=== PATIENT | female | born 1975 | race Native Hawaiian/Other Pacific Islander ===

== ENCOUNTER 2020-06-24 08:22 | Emergency (ER) | payer SELFPAY ==
[~2020-06-24] VITALS: Ht 170 cm; Wt 123.3 kg
[2020-06-24] MEDS ORDERED: LACTATED RINGERS 1,000 ML IV STA (08:53)
[2020-06-24 09:07] LABS: BASOPHILS % (AUTO) 0 % (0-10); EOSINOPHILS # (AUTO) 0.3 10^3/uL (0.0-0.3); EOSINOPHILS % (AUTO) 3 % (0-10); HEMATOCRIT 31 % (35-52); HEMOGLOBIN 9.5 G/DL (11.5-16.0); LYMPHOCYTES # (AUTO) 1.2 X 10^3 (1.0-4.0); LYMPHOCYTES % (AUTO) 12 % (12-44); MEAN CORPUSCULAR HGB CONC 30 G/DL (32-36); MEAN CORPUSCULAR VOLUME 80 FL (80-99); MEAN PLATELET VOLUME 10.2 FL (7.4-10.4); MONOCYTES # (AUTO) 0.5 X 10^3 (0.0-1.0); MONOCYTES % (AUTO) 5 % (0-12); NEUTROPHILS # (AUTO) 7.6 X 10^3 (1.8-7.8); NEUTROPHILS % (AUTO) 79 % (42-75); PLATELET COUNT 313 10^3/uL (130-400); WHITE BLOOD COUNT 9.6 10^3/uL (4.3-11.0)
[2020-06-24 09:08] LABS: CLARITY,URINE CLEAR; COLOR,URINE YELLOW; GLUCOSE, URINE (UA) NEGATIVE (NEGATIVE); KETONES,URINE NEGATIVE (NEGATIVE); LEUKOCYTE ESTERASE ,URINE TRACE (NEGATIVE); NITRITE,URINE NEGATIVE (NEGATIVE); PH,URINE 5.5 (5-9); PROTEIN,URINE 1+ (NEGATIVE)
[2020-06-24 09:15] LABS: MEAN CORPUSCULAR HEMOGLOBIN 24 PG (25-34)
[2020-06-24 09:20] LABS: BACTERIA,URINE MODERATE /HPF; SQUAMOUS EPITHELIAL CELL,UR >50 /HPF
[2020-06-24 09:21] LABS: BILIRUBIN,URINE 1+ (NEGATIVE)
[2020-06-24 09:23] LABS: ALBUMIN 4.1 GM/DL (3.2-4.5); CHLORIDE 102 MMOL/L (98-107); POTASSIUM 3.2 MMOL/L (3.6-5.0); SODIUM 138 MMOL/L (135-145)
[2020-06-24 09:24] LABS: CALCIUM 8.9 MG/DL (8.5-10.1)
[2020-06-24 09:25] LABS: GLUCOSE 141 MG/DL (70-105)
[2020-06-24 09:26] LABS: TOTAL PROTEIN 7.8 GM/DL (6.4-8.2)
[2020-06-24 09:27] LABS: BILIRUBIN,TOTAL 0.5 MG/DL (0.1-1.0); CARBON DIOXIDE 25 MMOL/L (21-32)
[2020-06-24 09:29] LABS: ALKALINE PHOSPHATASE 55 U/L (40-136); CREATININE SERUM 0.74 MG/DL (0.60-1.30); GFR ESTIMATED > 60
[2020-06-24 09:30] LABS: BUN/CREATININE RATIO 16
[2020-06-24 09:32] LABS: ALANINE AMINOTRANSFERASE 36 U/L (0-55); LIPASE 20 U/L (8-78)
[2020-06-24] MEDS ORDERED: NS 100 ML (IVPB) BAG IV ONE (09:45)
[2020-06-24] MEDS ORDERED: IOHEXOL 350 MG/ML 100 ML (OMNIPAQUE 350) VIAL IV ONE (09:45)
[2020-06-24] MEDS ORDERED: HOLD METFORMIN - RECEIVED CONTRAST 20 ML VIAL IV SCH (09:45)
[2020-06-24 09:52] LABS: TSH (THYROID ANALYZER) 4.36 UIU/ML (0.35-4.94)
--- NOTE | 2020-06-24 09:54 | ED Abdominal Pain ---
General Chief Complaint: Abdominal/GI Problems Stated Complaint: STOMACH/BACK PAIN Nursing Triage Note: ARRIVED VIA AMB TO ROOM 07 WITHOUT DIFFICULTY. COMPLAINS OF ABD PAIN ET YELLOW DIARRHEA X1 WEEK. RECENTLY OUT OF SHELTER. Sepsis Screen: No Definite Risk Source of Information: Patient Exam Limitations: No Limitations History of Present Illness Date Seen by Provider: Jun 24, 2020 Time Seen by Provider: 08:50 Initial Comments Here with complaint of diffuse abdominal pain but mostly above the bellybutton that is associated with diarrhea that is yellow and mucousy. States that she has had this for the last week. Denies fever or chills. Denies blood in her stool. Denies dysuria. Did get out of [facility] earlier this month and had CovidTesting at that time. That was negative. She currently [facility] the [facility]. Reports that she had ultrasound while in [facility] that showed multiple large cysts to the uterus and ovaries. She is not sure what that is all about. Timing/Duration: 1 Week Severity/Quality: Aching, Cramping Location: RUQ, LUQ Radiation: RLQ, LLQ Activities at Onset: None Modifying Factors: Improves With Defecating; Worsens With Eating Associated Symptoms: No Back Pain, No Chest Pain, No Fever/Chills, No Fatigue, No Nausea/Vomiting, No Shortness of Air; Swelling/Mass in Abdomen; No Weakness Allergies and Home Medications Allergies Coded Allergies: Penicillins (Verified Allergy, Unknown, 06/24/20) codeine (Verified Allergy, Unknown, 06/24/20) Patient Home Medication List Home Medication List Reviewed: Yes Review of Systems Review of Systems Constitutional: see HPI; No chills, No fever EENTM: No Symptoms Reported Respiratory: No Symptoms Reported Cardiovascular: No Symptoms Reported Gastrointestinal: See HPI Genitourinary: No Symptoms Reported Musculoskeletal: no symptoms reported All Other Systems Reviewed Negative Unless Noted: Yes Past Lanodfk-Rhccog-Lixdia Hx Past Med/Social Hx: Reviewed Nursing Past Med/Soc Hx Patient Social History Alcohol Use: Denies Use Recreational Drug Use: No Smoking Status: Current Everyday Smoker Recent Foreign Travel: No Contact w/Someone Who Travel: No Recent Infectious Disease Expo: No Recent Hopitalizations: No Past Medical History Surgeries: Yes (HAND) Section, Gallbladder Respiratory: No Cardiac: No Neurological: No Genitourinary: No Gastrointestinal: No Musculoskeletal: No Diabetes, Non-Insulin dep Cancer: No Family Medical History Reviewed Nursing Family Hx Physical Exam Vital Signs Vital Signs - First Documented 06/24/20 08:35 Temp 36.3 Pulse 84 Resp 16 B/P (MAP) 137/94 (108) Pulse Ox 99 O2 Delivery Room Air Capillary Refill : Less Than 3 Seconds Height/Weight/BMI Height: '" Weight: lbs. oz. kg; 42.00 BMI Method: General Appearance: WD/WN, no apparent distress HEENT: PERRL/EOMI, pharynx normal Neck: full range of motion, supple Respiratory: lungs clear, normal breath sounds Cardiovascular: regular rate, rhythm, no murmur Gastrointestinal: soft; No guarding, No rebound; tenderness (upper abdomen) Extremities: non-tender, normal inspection Back: normal inspection, no CVA tenderness, no vertebral tenderness Neurologic/Psychiatric: alert, oriented x 3 Skin: normal color, warm/dry Progress/Results/Core Measures Results/Orders Lab Results Laboratory Tests Test 06/24/20 08:35 06/24/20 08:55 Range/Units Urine Color YELLOW Urine Clarity CLEAR Urine pH 5.5 5-9 Urine Specific [place] >=1.030 1.016-1.022 Urine Protein 1+ H NEGATIVE Urine Glucose (UA) NEGATIVE NEGATIVE Urine Ketones NEGATIVE NEGATIVE Urine Nitrite NEGATIVE NEGATIVE Urine Bilirubin 1+ H NEGATIVE Urine Urobilinogen 1.0 < = 1.0 MG/DL Urine Leukocyte Esterase TRACE H NEGATIVE Urine RBC (Auto) NEGATIVE NEGATIVE Urine RBC NONE /HPF Urine WBC 5-10 H /HPF Urine Squamous Epithelial Cells >50 H /HPF Urine Crystals NONE /LPF Urine Bacteria MODERATE H /HPF Urine Casts NONE /LPF Urine Mucus NEGATIVE /LPF Urine Culture Indicated YES Urine Test NEGATIVE NEGATIVE White Blood Count 9.6 4.3-11.0 10^3/uL Red Blood Count 3.88 L 4.35-5.85 10^6/uL Hemoglobin 9.5 L 11.5-16.0 G/DL Hematocrit 31 L 35-52 % Mean Corpuscular Volume 80 80-99 FL Mean Corpuscular Hemoglobin 24 L 25-34 PG Mean Corpuscular Hemoglobin Concent 30 L 32-36 G/DL Red Cell Distribution Width 17.1 H 10.0-14.5 % Platelet Count 313 130-400 10^3/uL Mean Platelet Volume 10.2 7.4-10.4 FL Neutrophils (%) (Auto) 79 H 42-75 % Lymphocytes (%) (Auto) 12 12-44 % Monocytes (%) (Auto) 5 0-12 % Eosinophils (%) (Auto) 3 0-10 % Basophils (%) (Auto) 0 0-10 % Neutrophils # (Auto) 7.6 1.8-7.8 X 10^3 Lymphocytes # (Auto) 1.2 1.0-4.0 X 10^3 Monocytes # (Auto) 0.5 0.0-1.0 X 10^3 Eosinophils # (Auto) 0.3 0.0-0.3 10^3/uL Basophils # (Auto) 0.0 0.0-0.1 10^3/uL Sodium Level 138 135-145 MMOL/L Potassium Level 3.2 L 3.6-5.0 MMOL/L Chloride Level 102 98-107 MMOL/L Carbon Dioxide Level 25 21-32 MMOL/L Anion Gap 11 5-14 MMOL/L Blood Urea Nitrogen 12 7-18 MG/DL Creatinine 0.74 0.60-1.30 MG/DL Estimat Glomerular Filtration Rate > 60 BUN/Creatinine Ratio 16 Glucose Level 141 H 70-105 MG/DL Calcium Level 8.9 8.5-10.1 MG/DL Corrected Calcium 8.8 8.5-10.1 MG/DL Total Bilirubin 0.5 0.1-1.0 MG/DL Aspartate Amino Transf (AST/SGOT) 47 H 5-34 U/L Alanine Aminotransferase (ALT/SGPT) 36 0-55 U/L Alkaline Phosphatase 55 40-136 U/L C-Reactive Protein High Sensitivity 1.87 H 0.00-0.50 MG/DL Total Protein 7.8 6.4-8.2 GM/DL Albumin 4.1 3.2-4.5 GM/DL Lipase 20 8-78 U/L TSH Ramona Testing 4.36 0.35-4.94 UIU/ML My Orders Orders - AMERICA MORTON MD Lactated Ringers (Lr 1000 Ml Iv Solution (06/24/20 08:53) Ed Iv/Invasive Line Start (06/24/20 08:53) Cbc With Automated Diff (06/24/20 08:53) Comprehensive Metabolic Panel (06/24/20 08:53) Hs C Reactive Protein (06/24/20 08:53) Lipase (06/24/20 08:53) Thyroid Analyzer (06/24/20 08:53) Ua Culture If Indicated (06/24/20 08:53) Hcg,Qualitative Urine (06/24/20 08:53) Urine Culture (06/24/20 08:35) Ct Abdomen/Pelvis W (06/24/20 09:41) Iohexol Injection (Omnipaque 350 Mg/Ml 1 (06/24/20 09:45) Received Contrast (Hold Metformin- Contr (06/24/20 09:45) Ns (Ivpb) (Sodium Chloride 0.9% Ivpb Bag (06/24/20 09:45) Medications Given in ED Current Medications Medications Dose Ordered Sig/Vinnie Route Start Time Stop Time Status Last Admin Dose Admin Iohexol 100 ml ONCE ONCE IV 06/24/20 09:45 06/24/20 09:57 DC 06/24/20 10:17 100 ML Sodium Chloride 100 ml ONCE ONCE IV 06/24/20 09:45 06/24/20 09:57 DC 06/24/20 10:17 80 ML Vital Signs/I&O 06/24/20 08:35 Temp 36.3 Pulse 84 Resp 16 B/P (MAP) 137/94 (108) Pulse Ox 99 O2 Delivery Room Air Blood Pressure Mean: 108 Progress Progress Note : Progress Note Seen and evaluated. IV, labs, UA, LR 1 L bolus ordered. Anticipate CT abdomen pelvis. 0940: CT abdomen pelvis with contrast ordered. Monitor patient. 1159: Overall improved. Tolerated ice chips without difficulty. Results reviewed and discussed with the patient. She does need follow-up for the uterine enlargement and possible fibroids. Patient does have heavy menstrual periods. She has follow-up with a women's specialist in progress. I did discuss with her about follow-up with surgeon for possible endoscopy and she appreciated that recommendation. Discharged home with return precautions. Patient verbalize understanding instructions and agreement with plan. Diagnostic Imaging Diagonstic Imaging: CT Plain Films/CT/US/NM/MRI: abdomen, pelvis Comments [facility] [place], [place] NAME: JOSE ANTONIO [facility] REC#: [id number] PT STATUS: REG ER : 1975 PHYSICIAN: AMERICA MORTON MD ADMIT DATE: 06/24/20/ER Draft Date of Exam:06/24/20 CT ABDOMEN/PELVIS W CLINICAL INDICATION: Patient with diarrhea for 1 week as well as mid abdominal pain and nausea. EXAM: Axial CT scan of the abdomen and pelvis was performed without and with 100 cc of Omnipaque 350 IV contrast. Coronal and sagittal reformatted images were created. Portal venous and delayed phases were obtained. COMPARISON: None. FINDINGS: There is mild atelectasis involving both lung bases. There are small spurs involving both hips. There is facet arthropathy involving the lower lumbar spine. There are degenerative spurs involving the lumbar spine. There is diffuse low attenuation seen throughout the liver. The liver is enlarged measuring 21.3 cm in craniocaudal dimension. There is no liver mass. The spleen, pancreas, and adrenal glands are unremarkable. The gallbladder is surgically resected. There is pneumobilia seen which may be related to cholecystectomy changes. Both kidneys have a lobulated configuration which may be related to lobulations. Otherwise, both kidneys are unremarkable with no hydronephrosis, mass, or stones. The bladder is partially fluid-filled and otherwise unremarkable as visualized. The uterus is enlarged measuring grossly 8.6 cm x 10.2 cm x 4.2 cm (AP x Trans x CC). There is also a slightly lobulated contour, especially seen superiorly, which may represent a uterine fibroid. There is fluid in the uterus. The bilateral adnexal regions are unremarkable. There is no intra-abdominal free air or free fluid. There is a small amount of stool scattered throughout the colon. There are no significant air-fluid levels. There is no intestinal obstruction or abnormal bowel wall thickening. There is no lymphadenopathy. The visualized portion of the appendix is unremarkable. The extraabdominal and extrapelvic soft tissue structures are unremarkable. The abdominal aorta and common iliac arteries are unremarkable. IMPRESSION: 1. There is bowel wall thickening involving the first portion of the duodenum. Duodenitis may be considered versus contraction. Otherwise, there is no gross CT evidence of an acute abdominal or pelvic process. 2. There is significant enlargement of the uterus with a lobulated contour. This may be related to multiple uterine fibroids. A nonemergent ultrasound of the pelvis would better evaluate. 3. There is no intestinal obstruction or significant intestinal abnormality, as visualized. 4. There is hepatomegaly and diffuse fatty infiltration of the liver. Dictated on workstation # [id number] Dict: 06/24/20 1059 Trans: 06/24/20 1113 [id number] Interpreted by: ZOEY NICHOLS MD Electronically signed by: Departure Impression Primary Impression: Abdominal pain Qualified Codes: R10.10 - Upper abdominal pain, unspecified Additional Impression: Diarrhea Qualified Codes: R19.7 - Diarrhea, unspecified Disposition: 01 HOME, SELF-CARE Condition: Improved Departure-Patient Inst. Decision time for Depature: 12:00 Referrals: NIKKI PEÑA DO Patient Instructions: Severe Abdominal Pain, Adult (DC), Diarrhea and Travelers' Diarrhea, Adult (DC) Add. Discharge Instructions: All discharge instructions reviewed with patient and/or family. Voiced understanding. You should follow clear a light diet for the next several days and then advance as tolerated. You may initiate [id number] probiotic per package directions. Continue follow-up with the gas line installer supervisor related to the uterine fibroids. You may also follow-up with the surgeon listed (Dr. Peña) or of your choosing for recheck and further evaluation related to the abdominal pain and diarrhea as you may need upper or lower endoscopy (scope). Return for worse pain, fever, vomiting, weakness, blood in your vomit or stool, breathing problems or other concerns as needed. Copy Copies To 1: CECY MELENDREZ DO Copies To 2: NIKKI PEÑA DO AMERICA MORTON MD Jun 24, 2020 09:54
--- NOTE | 2020-06-24 10:33 | NUR ---
RESING IN BED ET DENIES NEEDS AT THIS TIME.
--- NOTE | 2020-06-24 11:10 | NUR ---
IN ROOM AT THIS TIME.
--- NOTE | 2020-06-24 11:13 | Diagnostic Imaging Report ---
CLINICAL INDICATION: Patient with diarrhea for 1 week as well as mid abdominal pain and nausea. EXAM: Axial CT scan of the abdomen and pelvis was performed without and with 100 cc of Omnipaque 350 IV contrast. Coronal and sagittal reformatted images were created. Portal venous and delayed phases were obtained. COMPARISON: None. FINDINGS: There is mild atelectasis involving both lung bases. There are small spurs involving both hips. There is facet arthropathy involving the lower lumbar spine. There are degenerative spurs involving the lumbar spine. There is diffuse low attenuation seen throughout the liver. The liver is enlarged measuring 21.3 cm in craniocaudal dimension. There is no liver mass. The spleen, pancreas, and adrenal glands are unremarkable. The gallbladder is surgically resected. There is pneumobilia seen which may be related to cholecystectomy changes. Both kidneys have a lobulated configuration which may be related to lobulations. Otherwise, both kidneys are unremarkable with no hydronephrosis, mass, or stones. The bladder is partially fluid-filled and otherwise unremarkable as visualized. The uterus is enlarged measuring grossly 8.6 cm x 10.2 cm x 4.2 cm (AP x Trans x CC). There is also a slightly lobulated contour, especially seen superiorly, which may represent a uterine fibroid. There is fluid in the uterus. The bilateral adnexal regions are unremarkable. There is no intra-abdominal free air or free fluid. There is a small amount of stool scattered throughout the colon. There are no significant air-fluid levels. There is no intestinal obstruction or abnormal bowel wall thickening. There is no lymphadenopathy. The visualized portion of the appendix is unremarkable. The extraabdominal and extrapelvic soft tissue structures are unremarkable. The abdominal aorta and common iliac arteries are unremarkable. IMPRESSION: 1. There is bowel wall thickening involving the first portion of the duodenum. Duodenitis may be considered versus contraction. Otherwise, there is no gross CT evidence of an acute abdominal or pelvic process. 2. There is significant enlargement of the uterus with a lobulated contour. This may be related to multiple uterine fibroids. A nonemergent ultrasound of the pelvis would better evaluate. 3. There is no intestinal obstruction or significant intestinal abnormality, as visualized. 4. There is hepatomegaly and diffuse fatty infiltration of the liver. Dictated by: Dictated on workstation # [id number]
[2020-06-24 12:06] VITALS: BP 130/85
== END 2020-06-24 12:06 | disposition home or self-care (01) ==
LOC: ER 08:26
DX: R10.84 Generalized abdominal pain (principal); R19.7 Diarrhea, unspecified; F17.200 Nicotine dependence, unspecified, uncomplicated; Z88.0 Allergy status to penicillin; Z88.5 Allergy status to narcotic agent; Z20.828 Contact with and (suspected) exposure to other viral communicable diseases
CPT/HCPCS: 36415; 74177; 80053; 81000; 83690; 84443; 84703; 85025; 86141; 87088

== ENCOUNTER 2020-08-08 05:33 | Outpatient (RCR) | payer OTHER ==
[~2020-08-08] VITALS: Ht 170.2 cm; Wt 121.4 kg
[~2020-08-08 05:33] MED LIST: ASPI-999 PO; ATOR20TA66 PO; BREX3TAB PO; CHLO25TA22 PO; DOCU100T2 PO; FERR325T5 PO; GLIP5TAB13 PO; LEVO137T2 PO; METF-399 PO; NAPR-915 PO; NORE-18 PO; ONDA8TAB15 PO; PRAZ2CAP2 PO; RT-ALBUINH IH; TRAZ-227 PO; VENL150T PO
== END 2020-08-08 12:00 | disposition home or self-care (01) ==
LOC: PREOP 05:33
PROVIDERS: ATTEND Obstetrics & Gynecology
DX: Z01.812 Encounter for preprocedural laboratory examination (principal); Z20.828 Contact with and (suspected) exposure to other viral communicable diseases
CPT/HCPCS: 87635

== ENCOUNTER 2020-09-19 05:35 | Outpatient (RCR) | payer OTHER ==
[~2020-09-19] VITALS: Ht 170.2 cm; Wt 121.4 kg
[~2020-09-19 05:35] MED LIST changes: +VENL225T PO
== END 2020-09-19 11:39 | disposition home or self-care (01) ==
LOC: PREOP 05:35
PROVIDERS: ATTEND Obstetrics & Gynecology
DX: Z01.812 Encounter for preprocedural laboratory examination (principal); N93.8 Other specified abnormal uterine and vaginal bleeding; Z20.828 Contact with and (suspected) exposure to other viral communicable diseases
CPT/HCPCS: 87635

== ENCOUNTER 2020-09-22 06:07 | Day surgery (SDC) | payer OTHER ==
[2020-09-22] VITALS (9 sets, daily range): BP systolic 102–133; BP diastolic 56–93
[~2020-09-22] VITALS: Ht 170.2 cm; Wt 121.4 kg
[2020-09-22] MEDS ORDERED: LACTATED RINGERS 1,000 ML IV PRN ×2 (06:15)
[2020-09-22] MEDS ORDERED: BUPIVACAINE 0.25% 30 ML (SENSORCAINE) VIAL ONE (07:11)
[2020-09-22] MEDS ORDERED: MIDAZOLAM 2 MG/2 ML (VERSED) VIAL ONE ×2 (07:11→07:29)
[2020-09-22] MEDS ORDERED: MIDAZOLAM 2 MG/2 ML (VERSED) VIAL IV ONE (07:15)
--- NOTE | 2020-09-22 07:20 | Discharge Inst-Women's Service ---
Discharge Inst-Women's Serv Depart Medication/Instructions New, Converted or Re-Newed RX: RX on Chart Problems Reviewed?: Yes Consults/Follow Up Additional Follow Up: Yes Orders/Referrals Dr. Garcia in 2 weeks Activity Activity: Activity as Tolerated Driving Instructions: No Driving for 1 Week NO SMOKING: NO SMOKING Nothing Inside Vagina: No Douching, No Corrigan, No Tampons Diet Discharge Diet: No Restrictions Symptoms to Report to : Bleeding Excessive, Pain Increased, Fever Over 101 Degrees F, Vaginal Bleeding Increase, Questions/Concerns For Any Problems or Questions: Contact Your Physician TASHIA GARCIA DO Sep 22, 2020 07:20
[2020-09-22 07:24] LABS: BASOPHILS # (AUTO) 0.1 10^3/uL (0.0-0.1); BASOPHILS % (AUTO) 1 % (0-10); EOSINOPHILS # (AUTO) 0.3 10^3/uL (0.0-0.3); EOSINOPHILS % (AUTO) 3 % (0-10); HEMATOCRIT 26 % (35-52); HEMOGLOBIN 7.3 g/dL (11.5-16.0); LYMPHOCYTES # (AUTO) 1.3 10^3/uL (1.0-4.0); LYMPHOCYTES % (AUTO) 12 % (12-44); MEAN CORPUSCULAR HEMOGLOBIN 23 pg (25-34); MEAN CORPUSCULAR HGB CONC 28 g/dL (32-36); MEAN CORPUSCULAR VOLUME 81 fL (80-99); MEAN PLATELET VOLUME 10.6 fL (9.0-12.2); MONOCYTES # (AUTO) 0.7 10^3/uL (0.0-1.0); MONOCYTES % (AUTO) 7 % (0-12); NEUTROPHILS # (AUTO) 8.1 10^3/uL (1.8-7.8); NEUTROPHILS % (AUTO) 77 % (42-75); PLATELET COUNT 382 10^3/uL (130-400); WHITE BLOOD COUNT 10.4 10^3/uL (4.3-11.0)
[2020-09-22] MEDS ORDERED: ONDANSETRON 4 MG/2 ML (SDV) Z0FRAN ONE (07:28)
[2020-09-22] MEDS ORDERED: proPOfol 200 MG/20 ML (DIPRIVAN) VIAL IV ONE (07:28)
[2020-09-22] MEDS ORDERED: SEVOFLURANE (ULTANE) 15 ML INHAL SOLN ONE (07:28)
[2020-09-22] MEDS ORDERED: LIDOCAINE PF 2% 5 ML (XYLOCAINE) VIAL ONE (07:28)
[2020-09-22] MEDS ORDERED: fentaNYL INJECTION 100 MCG/2 ML AMP ONE (07:29)
[2020-09-22] MEDS ORDERED: D5 LR IV SOLUTION 1,000 ML IV SCH (07:30)
[2020-09-22] MEDS ORDERED: HYDROcodone/APAP 5 MG/325 MG (LORTAB) TAB PO PRN (07:30)
[2020-09-22] MEDS ORDERED: ONDANSETRON 4 MG/2 ML (SDV) Z0FRAN IVP PRN ×2 (07:30→08:45)
[2020-09-22] MEDS ORDERED: KETOROLAC 30 MG/ML VIAL IVP ONE (07:30)
[2020-09-22] MEDS ORDERED: KETOROLAC 30 MG/ML VIAL ONE (08:02)
--- NOTE | 2020-09-22 08:35 | Anesthesia-General Post-Op ---
General Patient Condition Mental Status/LOC: Same as Preop Cardiovascular: Satisfactory Nausea/Vomiting: Absent Respiratory: Satisfactory Pain: Controlled Complications: Absent Post Op Complications Complications None Follow Up Care/Instructions Patient Instructions None needed. Anesthesia/Patient Condition Patient Condition Patient is doing well, no complaints, stable vital signs, no apparent adverse anesthesia problems. No complications reported per nursing. MARIO NORMAN CRNA Sep 22, 2020 08:35
[2020-09-22] MEDS ORDERED: MEPERIDINE (DEMEROL) INJ 50 MG/ML IVP ONE (08:45)
[2020-09-22] MEDS ORDERED: morphine INJ 10 MG/ML 1ML (SYR OR VIAL) IVP ONE (08:45)
--- NOTE | 2020-09-22 17:23 | OPERATIVE REPORT ---
DATE OF SERVICE: PREOPERATIVE DIAGNOSIS: A 44-year-old female with abnormal uterine bleeding. POSTOPERATIVE DIAGNOSIS: A 44-year-old female with abnormal uterine bleeding. PROCEDURE: D and C. SURGEON: Alex Loving DO ANESTHESIA: LMA general. ESTIMATED BLOOD LOSS: Minimal. URINE OUTPUT: 40 mL emptied at the start of the procedure. FINDINGS: A bulky enlarged uterus approximately 10 to 12-week size with large amount of endometrial tissue and old blood clot and blood removed with curetting. SPECIMEN SENT: Endometrial curettings. INDICATIONS FOR PROCEDURE: This 44-year-old female is the patient who is consulted to my office for abnormal heavy uterine bleeding. The patient reports having bleeding for almost 2 to 3 month heavy, it is irregular in nature, it gets heavy at times and gets multimedia instructional designer due to the patient's body habitus. I discussed with her the increased risk for endometrial carcinoma. We discussed the next diagnostic step in this evaluation including endometrial sampling. We discussed doing a D and C for the potential curative and diagnostic purposes. Risks of the procedure were discussed with the patient in the preoperative area after all questions were answered, consent was obtained, the patient was taken to the operating room. OPERATIVE REPORT IN DETAIL: Once in the operating room, anesthesia was found to be adequate, placed in dorsal lithotomy position, prepped and draped in normal sterile fashion. A timeout was performed. I then placed a weighted speculum into the patient's vagina. Right angle retractor was used to visualize the cervix, which was grasped at 12 o'clock position using a long Allis clamp. I then gently sound the uterine cavity, depth was found to be 12 cm. I then performed paracervical block at 3 and 9 o'clock positions on the cervix. Care was taken to aspirate for injecting 0.25% Marcaine was used as my anesthetic and 5 mL were injected into each site after which the cervix was then dilated using Hanks dilators to allow a medium size endometrial curette into the uterine cavity. I then methodically clear the endometrial cavity and lining using an endometrial curetting and collect this on several different Telfa pads and send this as endometrial curettings to pathology for permanent section. After which, there was no active bleeding noted from any of my dissection planes. Removed all the instruments from the patient's vagina. The patient tolerated the procedure well and was taken to recovery area in stable condition. Lap and sponge counts were correct at the end of the procedure. Instrument counts correct as well. Job ID: [id number] DocumentID: [id number] Dictated Date: 09/22/2020 08:56:08 Neurology Manager Date: 09/22/2020 17:22:38 Dictated By: DO GUNNER BERMAN
== END 2020-09-22 10:12 | disposition home or self-care (01) ==
LOC: SDC 06:07
PROVIDERS: ATTEND Obstetrics & Gynecology
DX: N93.9 Abnormal uterine and vaginal bleeding, unspecified (principal); N84.0 Polyp of corpus uteri; D25.0 Submucous leiomyoma of uterus; I10 Essential (primary) hypertension; F41.9 Anxiety disorder, unspecified; F32.9 Major depressive disorder, single episode, unspecified; J45.909 Unspecified asthma, uncomplicated; E11.9 Type 2 diabetes mellitus without complications; E66.9 Obesity, unspecified; Z68.41 Body mass index [BMI] 40.0-44.9, adult; D64.9 Anemia, unspecified; Z79.899 Other long term (current) drug therapy; Z79.84 Long term (current) use of oral hypoglycemic drugs; Z79.51 Long term (current) use of inhaled steroids; Z79.82 Long term (current) use of aspirin; Z88.0 Allergy status to penicillin; Z88.5 Allergy status to narcotic agent; Z80.49 Family history of malignant neoplasm of other genital organs
CPT/HCPCS: 36415; 82962; 84703; 85025; 86850; 86900; 86901; 87081; 88305

== ENCOUNTER → 2020-12-29 | Outpatient (CLI) | payer OTHER | END | disposition home or self-care (01) | LOC: PREOP 05:42 → EDSTATUS 12:00 | PROVIDERS: ATTEND Obstetrics & Gynecology | DX: Z01.818 Encounter for other preprocedural examination (principal) ==